=== PATIENT | male | born 1990 | race Caucasian/White ===

== ENCOUNTER 2020-12-16 08:13 | Emergency (ER) | payer SELFPAY ==
[2020-12-16 08:17] VITALS: BP 129/84; PULSE 74; RESP 20; TEMP 36.6; O2SAT 99
[2020-12-16 08:52] LABS: Add Urine Microscopic? YES; Appearance Urine Cloudy (Clear); Bacteria Urine Trace /hpf; Bilirubin Urine Negative (Negative); Blood Urine 1+ (Negative); Color Urine Yellow (Yellow); Glucose Urine UA Negative (Negative); Ketones Urine Negative (Negative); Leukocyte Esterase Ur 3+ LEU/UL (Negative); Mucus Urine Rare /lpf; Nitrate Urine Negative (Negative); Protein Urine 1+ mg/dL (Negative); RBC Urine 21-50 /hpf (0-2); Specific Grav Ur 1.019 (1.001-1.035); Urobilinogen Urine Negative mg/dL (<2.0); WBC Clumps Urine Present /HPF; WBC Urine >75 /hpf
--- NOTE | 2020-12-16 09:10 | ED.MALEGU ---
HPI - Male Genitourinary General Chief complaint: Urogenital-Male Stated complaint: urinary problems/poss uti Time Seen by Provider: 12/16/20 08:19 Source: patient Mode of arrival: ambulatory Limitations: no limitations History of Present Illness HPI Narrative: Patient is 30 years old white male presents with burning urination and yellow penile discharge started 24 hours ago. Patient had unprotected sex 7 days ago. Patient denies any fever or chills or history of STD. Related Data Allergies Allergy/AdvReac Type Severity Reaction Status Date / Time No Known Allergies Allergy Verified 12/16/20 08:25 Review of Systems Review of Systems: Narrative: CONSTITUTIONAL: Denies fever, chills, or sweats. EYES: Denies visual changes, redness, or discharge. ENT: Denies rhinorrhea, congestion, sore throat, or otalgia. CARDIOVASCULAR: Denies chest pain, palpitations, or edema. RESPIRATORY: Denies cough or dyspnea. GASTROINTESTINAL: Denies abdominal pain, nausea, vomiting, or diarrhea. GENITOURINARY: Denies dysuria or hematuria. SKIN: Denies rash or itching. MUSCULOSKELETAL: Denies back pain, joint pain, or myalgia. NEUROLOGIC: Denies headache, numbness, or weakness. PSYCHIATRIC: Denies anxiety or depression. PMFSH Social History Social History Gender identity (if verbalized by the patient): Male Exam Narrative: Exam Narrative: General appearance: Well-developed, well-nourished Chest and respiratory: Airway patent, no respiratory distress, no accessory muscle use Heart: Regular rate/rhythm Abdomen: Soft, nontender, no organomegaly, quiet bowel sounds Neurologic: Alert and oriented ?3, Course Course Emergency Course: Stable Vital Signs Vital signs: Vital Signs Temperature 36.6 C 12/16/20 08:17 Pulse Rate 74 12/16/20 08:17 Respiratory Rate 20 12/16/20 08:17 Blood Pressure 129/84 12/16/20 08:17 Pulse Oximetry 99 12/16/20 08:17 Temperature 36.6 C 12/16/20 08:17 Pulse Rate 74 12/16/20 08:17 Respiratory Rate 20 12/16/20 08:17 Blood Pressure 129/84 12/16/20 08:17 Pulse Oximetry 99 12/16/20 08:17 MDM - Male Genitourinary MDM Narrative Medical decision making narrative: STD is my concern Differential Diagnosis Differential diagnosis: Likely urinary tract infection and urethritis Lab Data Labs: Lab Results 12/16/20 12/16/20 Range/Units 08:37 09:00 Urine Color Yellow (Yellow) Urine Appearance Cloudy H (Clear) Urine pH 5.0 (5.0-9.0) Ur Specific [place] 1.019 (1.001-1.035) Urine Protein 1+ H (Negative) mg/dL Urine Glucose (UA) Negative (Negative) mg/dL Urine Ketones Negative (Negative) mg/dL Ur Blood (Man) 1+ H (Negative) Urine Nitrate Negative (Negative) Urine Bilirubin Negative (Negative) Urine Urobilinogen Negative (<2.0) mg/dL Leukocyte Esterase Rfl 3+ H (Negative) LEISA/UL Urine RBC 21-50 H (0-2) /hpf Urine WBC >75 H /hpf Urine WBC Clumps Present H (None) /HPF Urine Bacteria Trace /hpf Urine Mucus Rare /lpf C.trachomatis RNA (TMA) Pending N.gonorrhoeae RNA (TMA) Pending Critical Care Time Critical Care Time Critical Care Time: No Discharge Plan Discharge Clinical Impression: Concern about STD in male without diagnosis Urinary tract infection Qualifiers: Urinary tract infection type: site unspecified Hematuria presence: with hematuria Qualified Code(s): N39.0 - Urinary tract infection, site not specified Patient Disposition: Home, Self-Care Condition: Stable Instructions: Sexually Transmitted Diseases (ED), Urinary Tract Infection in Men (DC)
[2020-12-16] MEDS: cefTRIAXone 1 GM VIAL 0.5 GM IM (09:14)
[2020-12-16] MEDS: AZITHROMYCIN 250 MG TABLET 1000 MG PO (09:14)
== END 2020-12-16 09:44 | disposition home or self-care (01) ==
PROVIDERS: Emergency Provider Emergency Medicine
DX: N39.0 Urinary tract infection, site not specified (principal)
CPT/HCPCS: 81001; 87086; 87491; 87591; 96372; 99283; A9270; J0696